=== PATIENT | female | born 1970 | race Caucasian/White ===

== ENCOUNTER 2018-05-22 16:38 | Emergency (ER) | payer OTHER ==
[~2018-05-22] VITALS: Ht 160 cm; Wt 81.7 kg
[~2018-05-22 16:38] MED LIST: ACCUPRIL40 MG PO; HYDROCODONE-AP1 EAC6 PO; IBUPROFEN 600600 M1; IBUPROFEN 600600 M1 PO; LOPRESSOR25 PO; MACROBID 100 M100 M1 PO; NORCO 5-325 TA1 EACH PO; PRADAXA75 MG PO
[2018-05-22 17:10] LABS: URINE BILIRUBIN NEGATIVE (Negative); URINE BLOOD 1+ (Negative); URINE CLARITY CLEAR; URINE COLOR YELLOW; URINE GLUCOSE-RANDOM* NEGATIVE (Negative); URINE KETONES NEGATIVE (Negative); URINE LEUKOCYTES-REFLEX NEGATIVE (Negative); URINE NITRITE-REFLEX NEGATIVE (Negative); URINE PROTEIN (DIPSTICK) NEGATIVE (Negative); URINE SPECIFIC GRAVITY >= 1.030 (1.005-1.035); URINE UROBILINOGEN 0.2 E.U./dl (0.2-1.0)
[2018-05-22 17:21] LABS: CASTS None Seen /LPF (None Seen); CRYSTALS None Seen /LPF (None Seen); SQUAMOUS 4-10 Moderate /LPF (0-3); URINE RBC 0-2 Rare /HPF (0-2); URINE WBC-REFLEX 0-5 Rare /HPF (0-5)
[2018-05-22 17:41] LABS: ABSOLUTE NEUTROPHILS 7.8 thou/uL (1.4-8.2); BASOPHILS 0.5 % (0.0-2.0); EOSINOPHILS 0.8 % (0.0-3.0); HEMATOCRIT 40.2 % (37.0-47.0); HEMOGLOBIN 14.2 gm/dL (12.0-15.0); LYMPHOCYTES 13.8 % (24.0-44.0); MCH 31.5 pg (26.0-34.0); MCHC 35.3 g/dL (28.0-37.0); MCV 89.3 fL (80.0-100.0); MONOCYTES 5.8 % (1.0-8.0); PLATELET COUNT 242 thou/uL (150-400); POLYS 79.1 % (36.0-66.0); WBC 9.9 thou/uL (4.0-11.0)
[2018-05-22 17:48] LABS: CALCIUM 9.9 mg/dL (8.5-10.1); CREATININE 0.8 mg/dL (0.6-1.0); POTASSIUM 3.6 mmol/L (3.5-5.1)
[2018-05-22 17:55] LABS: ALBUMIN 3.5 g/dL (3.4-5.0); TOTAL BILIRUBIN 0.3 mg/dL (<0.1-1.0); TOTAL PROTEIN 7.6 g/dL (6.4-8.2)
[2018-05-22] MEDS ORDERED: NORCO 5-325 TA1 EACH PO (19:55)
[2018-05-22] MEDS ORDERED: CIPRO500 MG PO (19:55)
[2018-05-22] MEDS ORDERED: ZOFRAN ODT4 MG PO (19:55)
[2018-05-22] MEDS ORDERED: FLAGYL500 MG PO (19:55)
[2018-05-22 20:20] VITALS: BP 140/78
== END 2018-05-22 20:23 | disposition home or self-care (01) ==
LOC: ER 16:38
PROVIDERS: Physician Assistant
DX: K52.9 Noninfective gastroenteritis and colitis, unspecified (principal); K64.9 Unspecified hemorrhoids; Z88.5 Allergy status to narcotic agent

== ENCOUNTER 2018-09-17 14:30 | Emergency (ER) | payer OTHER ==
[~2018-09-17] VITALS: Ht 160 cm; Wt 80.7 kg
[~2018-09-17 14:30] MED LIST changes: +CIPRO500 MG PO; +FLAGYL500 MG PO; +ZOFRAN ODT4 MG PO
[2018-09-17] MEDS ORDERED: PHENTERMINE HCL30 MG PO (14:36)
[2018-09-17 15:05] LABS: URINE CLARITY CLOUDY; URINE COLOR YELLOW; URINE SPECIFIC GRAVITY >= 1.030 (1.005-1.035)
[2018-09-17 15:06] LABS: URINE BILIRUBIN NEGATIVE (Negative); URINE BLOOD TRACE (Negative); URINE GLUCOSE-RANDOM* NEGATIVE (Negative); URINE KETONES NEGATIVE (Negative); URINE LEUKOCYTES-REFLEX TRACE (Negative); URINE NITRITE-REFLEX NEGATIVE (Negative); URINE PROTEIN (DIPSTICK) NEGATIVE (Negative); URINE UROBILINOGEN 0.2 E.U./dl (0.2-1.0)
[2018-09-17 15:17] LABS: ABSOLUTE NEUTROPHILS 5.8 thou/uL (1.4-8.2); BASOPHILS 0.7 % (0.0-2.0); EOSINOPHILS 1.3 % (0.0-3.0); HEMATOCRIT 40.3 % (37.0-47.0); HEMOGLOBIN 13.8 gm/dL (12.0-15.0); LYMPHOCYTES 24.2 % (24.0-44.0); MCH 31.3 pg (26.0-34.0); MCHC 34.3 g/dL (28.0-37.0); MCV 91.4 fL (80.0-100.0); MONOCYTES 6.6 % (1.0-8.0); PLATELET COUNT 235 thou/uL (150-400); POLYS 67.2 % (36.0-66.0); RBC 4.41 mil/uL (4.20-5.00); RDW 13.9 % (10.5-14.5); WBC 8.6 thou/uL (4.0-11.0)
[2018-09-17 15:27] LABS: CREATININE 0.7 mg/dL (0.6-1.0); POTASSIUM 3.7 mmol/L (3.5-5.1)
[2018-09-17 15:33] LABS: ALBUMIN 3.6 g/dL (3.4-5.0); TOTAL BILIRUBIN 0.2 mg/dL (<0.1-1.0); TOTAL PROTEIN 7.6 g/dL (6.4-8.2)
[2018-09-17] MEDS ORDERED: DIFLUCAN200 MG PO (17:03)
[2018-09-17] MEDS ORDERED: NORCO 10-325 T1 EACH PO ×2 (17:03→17:04)
[2018-09-17] MEDS ORDERED: FLAGYL500 M1 PO ×2 (17:03→17:04)
[2018-09-17] MEDS ORDERED: ONDANSETRON HCL4 M2 PO (17:21)
[2018-09-17 17:44] VITALS: BP 122/73
== END 2018-09-17 17:45 | disposition home or self-care (01) ==
LOC: ER 14:30
PROVIDERS: Physician Assistant
DX: N76.0 Acute vaginitis (principal); B96.89 Other specified bacterial agents as the cause of diseases classified elsewhere; N83.201 Unspecified ovarian cyst, right side; N83.202 Unspecified ovarian cyst, left side; Z88.5 Allergy status to narcotic agent